=== PATIENT | male | born 1950 | race Caucasian/White ===

== ENCOUNTER 2025-02-08 11:00 | Outpatient (CLI) | payer MEDICARE ==
[~2025-02-08 11:00] MED LIST: voltaren gel 1% TP
[2025-02-08 11:40] LABS: CREATININE 0.79 MG/DL (0.60-1.10); TOTAL CARBON DIOXIDE 26.7 MMOL/L (24-32); eGFR > 90 ML/MIN
--- NOTE | 2025-02-08 14:43 | RADIOLOGY REPORT ---
CLINICAL HISTORY: Ulcer of right heel and midfoot. TECHNIQUE: Multi sequence multi planar MRI images of the right foot were obtained prior to and after the uneventful administration of 15 mL Clariscan contrast. COMPARISON: None FINDINGS: There is a wound at the plantar aspect of the hindfoot near the level of the posterior calcaneus with adjacent subcutaneous edema and enhancement extending to the plantar aspect of the calcaneus, likely cellulitis in the appropriate clinical setting. No peripherally enhancing abscess demonstrated. There is mild t2/stir hyperintense signal in the adjacent portions of the plantar aspect of the calcaneus near the attachment site of the plantar fascia with questionable minimal T1 hypointense signal and enhancement in this location, possible early osteomyelitis in the appropriate clinical setting. There is no other evidence for osteomyelitis elsewhere in the right foot. 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 Hallux valgus deformity. Moderate arthritic changes at the naviculocuneiform joint. Likely Moderate arthritic changes at the medial aspect of the subtalar joint. Moderate subcutaneous edema along the dorsal aspect of the midfoot and forefoot without associated enhancement to suggest cellulitis. Marked fatty atrophy of the intrinsic musculature of the forefoot and hindfoot. Visualized tendons appear intact. IMPRESSION: 1. Wound at the plantar aspect of the hindfoot near the level of the posterior calcaneus with Findings consistent with cellulitis in the adjacent soft tissues extending adjacent to the plantar aspect of the calcaneus. No peripherally enhancing fluid collection identified to suggest abscess. 2. Mild marrow signal changes at the plantar aspect of the calcaneus near the attachment site of the plantar fascia, possible mild early osteomyelitis in the appropriate clinical setting. Correlate with clinical findings. 3. Additional findings as detailed above.
[2025-02-08] MEDS ORDERED: GADOTERATE MEGLUMINE 7.5 MMOL/15 ML VIAL IV ONE (17:19)
== END 2025-02-08 23:59 | disposition home or self-care (01) ==
LOC: MRI 11:00
PROVIDERS: ATTEND Emergency Medicine
DX: E11.621 Type 2 diabetes mellitus with foot ulcer (principal); L97.413 Non-pressure chronic ulcer of right heel and midfoot with necrosis of muscle
CPT/HCPCS: 36415; 73719; 80053; A9575